=== PATIENT | female | born 1935 | race Hispanic/Latino ===

== ENCOUNTER 2018-01-31 19:54 | Inpatient (IN) | payer OTHER, MEDICARE ==
[~2018-01-31] VITALS: Ht 152.4 cm; Wt 67.6 kg
[2018-01-31] MEDS ORDERED: ONDANSETRON HCL 4 MG/2 ML VIAL ONE (20:34)
[2018-01-31] MEDS ORDERED: SODIUM CHLORIDE 0.9% 1000ML 1,000 ML IV ONE (20:34)
[2018-01-31] MEDS ORDERED: FAMOTIDINE/PF 20 MG/2 ML VIAL IV ONE (20:35)
[2018-01-31 20:59] LABS: BASOPHILS % (AUTO) 0.4 % (0.0-5.0); EOSINOPHILS % (AUTO) 0.3 % (0.0-8.0); HEMATOCRIT 38.6 % (36-48); LYMPHOCYTES % (AUTO) 8.9 % (21.0-51.0); MEAN CORPUSCULAR HEMOGLOBIN 29.4 pg (27.0-33.0); MEAN CORPUSCULAR VOLUME 83.9 fL (79-99); MONOCYTES % (AUTO) 5.6 % (3.0-13.0); NEUTROPHILS % (AUTO) 84.8 % (40.0-77.0); PLATELET COUNT (AUTO) 462 K/uL (130-400); RED CELL DISTRIBUTION WIDTH 13.5 % (11.0-15.5); WHITE BLOOD COUNT (AUTO) 20.1 K/uL (4.8-10.8)
[2018-01-31 21:23] LABS: ALBUMIN 3.5 g/dL (3.5-5.0); BILIRUBIN,TOTAL 0.5 mg/dL (0.2-1.0); CREATINE KINASE MB 1.6 ng/mL (0.5-3.6); THYROID STIMULATING HORMONE 2.01 uIU/mL (0.36-3.74); TOTAL PROTEIN, SERUM 7.5 g/dL (6.0-8.3)
[2018-01-31 21:27] LABS: POTASSIUM 2.8 mmol/L (3.5-5.1)
[2018-01-31 22:04] LABS: ABG OXYGEN SATURATION 78.7 % (95.0-99.0); BASE EXCESS,VENOUS BLOOD GAS 2.3 (-2.0-3.0); HCO3,VENOUS BLOOD GAS 26.9 (21.0-28.0); PCO2,VENOUS BLOOD GAS 42 (32-45); PH,VENOUS BLOOD GAS 7.425 (7.350-7.450)
[2018-01-31] MEDS ORDERED: MAGNESIUM 2GM PREMIX 50ML 50 ML IV ONE (23:15)
[2018-01-31] MEDS ORDERED: POTASSIUM CHLORIDE 20MEQ/100ML 100 ML IV ONE (23:15)
[2018-01-31] MEDS ORDERED: CEFTRIAXONE SODIUM 1 GM ONE (23:15)
[2018-01-31] MEDS ORDERED: NS-20 MEQ KCL 1000ML 1,000 ML IV ONE (23:16)
[2018-01-31 23:58] LABS: APPEARANCE,URINE Cloudy (CLEAR); BILIRUBIN,URINE Negative (NEGATIVE); COLOR,URINE Yellow (YELLOW); GLUCOSE, URINE (UA) Negative (NEGATIVE); KETONES,URINE Negative (NEGATIVE); LEUKOCYTE ESTERASE ,URINE Trace (NEGATIVE); NITRATE,URINE Negative (NEGATIVE); OCCULT BLOOD,URINE Large (NEGATIVE); PROTEIN,URINE Trace (NEGATIVE); UROBILINOGEN,URINE 0.2 mg/dL (0.2-1.0)
[2018-02-01 00:34] LABS: BACTERIA,URINE Rare /HPF (None Seen); WBC,URINE 0-1 /HPF (0-1)
[2018-02-01 01:35] VITALS: BP 149/71
[2018-02-01] MEDS ORDERED: POTASSIUM CHLORIDE 10% ELIXIR 20 MEQ/15 ML UDCUP PO PRN (02:15)
[2018-02-01] MEDS: NS-20 MEQ KCL 1000ML 1,000 ML IV SCH ×2 (02:15→11:40)
[2018-02-01] MEDS ORDERED: MAGNESIUM 2GM PREMIX 50ML 50 ML IV PRN (02:15)
[2018-02-01] MEDS ORDERED: POTASSIUM CHLORIDE 20 MEQ ERTAB PO PRN (02:15)
[2018-02-01 03:27] VITALS: BP 148/71
[2018-02-01] MEDS: LEVOFLOXACIN 500 MG/D5W 100 ML 100 ML IV SCH (04:19)
[2018-02-01 04:33] LABS: BASOPHILS % (AUTO) 0.2 % (0.0-5.0); EOSINOPHILS % (AUTO) 0.3 % (0.0-8.0); HEMATOCRIT 33.1 % (36-48); LYMPHOCYTES % (AUTO) 12.5 % (21.0-51.0); MEAN CORPUSCULAR HGB CONC 34.8 g/dL (32.0-36.0); MEAN CORPUSCULAR VOLUME 83.4 fL (79-99); MONOCYTES % (AUTO) 6.3 % (3.0-13.0); NEUTROPHILS % (AUTO) 80.7 % (40.0-77.0); PLATELET COUNT (AUTO) 328 K/uL (130-400); RED BLOOD CELL COUNT(AUTO) 3.97 MIL/uL (4.00-5.50); RED CELL DISTRIBUTION WIDTH 13.1 % (11.0-15.5); WHITE BLOOD COUNT (AUTO) 15.1 K/uL (4.8-10.8)
[2018-02-01 04:57] LABS: CREATININE 0.7 mg/dL (0.5-1.5); MAGNESIUM 1.7 mg/dL (1.80-2.40)
[2018-02-01 05:00] LABS: HEMOGLOBIN A1C 7.1 % (4.0-6.0)
[2018-02-01 05:06] LABS: POTASSIUM 2.9 mmol/L (3.5-5.1)
[2018-02-01] MEDS: POTASSIUM CHLORIDE 20MEQ/100ML 100 ML IV PRN ×2 (05:40→09:48)
[2018-02-01] MEDS: LIDOCAINE HCL-MPF 1% 2ML VIAL IVP PRN ×2 (05:40→09:48)
[2018-02-01] MEDS: ONDANSETRON HCL 4 MG/2 ML VIAL IV PRN ×3 (06:46→17:26)
[2018-02-01] MEDS: INSULIN HUMULIN R 100 UNIT/ML 3ML SQ SCH ×4 (07:30→21:00)
[2018-02-01 07:45] VITALS: BP 120/57
[2018-02-01] MEDS ORDERED: PRAV10TA39 PO (08:46)
[2018-02-01] MEDS ORDERED: LOSA1TAB54 PO (08:46)
[2018-02-01] MEDS ORDERED: METO-408 PO (08:46)
[2018-02-01] MEDS ORDERED: CYAN250010 PO (08:46)
[2018-02-01] MEDS ORDERED: SITA1TAB2 PO (08:46)
[2018-02-01] MEDS ORDERED: AMLO10TA6 PO (08:46)
[2018-02-01] MEDS ORDERED: PANTOPRAZOLE SODIUM 40 MG TABLET.DR PO SCH (09:00)
[2018-02-01 11:40] VITALS: BP 127/65
[2018-02-01] MEDS: IPRATROPIUM/ALBUTEROL SULFATE 3 ML SOLUTION IH SCH ×2 (14:59→21:21)
[2018-02-01] MEDS: POTASSIUM CHLORIDE 40 MEQ in SODIUM CHLORIDE 0.9% 1000ML 1,000 ML IV SCH (15:18)
[2018-02-01] MEDS: METOCLOPRAMIDE 10 MG/2 ML VIAL IVP SCH ×2 (15:18→21:27)
[2018-02-01] MEDS: FAMOTIDINE/PF 20 MG/2 ML VIAL IV SCH (15:18)
[2018-02-01 16:31] VITALS: BP 135/71
[2018-02-01 17:55] LABS: CREATININE,URINE RANDOM 8 mg/dL (30-135); SODIUM,URINE RANDOM 20 mmol/l (40-220)
[2018-02-01 20:06] VITALS: BP 127/67
[2018-02-02] VITALS (7 sets, daily range): BP systolic 130–155; BP diastolic 57–75
[2018-02-02] MEDS: LEVOFLOXACIN 500 MG/D5W 100 ML 100 ML IV SCH (03:13)
[2018-02-02 03:54] LABS: BASOPHILS % (AUTO) 0.4 % (0.0-5.0); EOSINOPHILS % (AUTO) 0.7 % (0.0-8.0); HEMATOCRIT 31.5 % (36-48); LYMPHOCYTES % (AUTO) 16.1 % (21.0-51.0); MEAN CORPUSCULAR HEMOGLOBIN 29.4 pg (27.0-33.0); MEAN CORPUSCULAR HGB CONC 34.8 g/dL (32.0-36.0); MEAN CORPUSCULAR VOLUME 84.4 fL (79-99); MONOCYTES % (AUTO) 7.3 % (3.0-13.0); NEUTROPHILS % (AUTO) 75.5 % (40.0-77.0); PLATELET COUNT (AUTO) 351 K/uL (130-400); RED BLOOD CELL COUNT(AUTO) 3.73 MIL/uL (4.00-5.50); RED CELL DISTRIBUTION WIDTH 13.4 % (11.0-15.5); WHITE BLOOD COUNT (AUTO) 11.4 K/uL (4.8-10.8)
[2018-02-02 03:56] LABS: CREATININE 0.7 mg/dL (0.5-1.5); MAGNESIUM 2.3 mg/dL (1.80-2.40); POTASSIUM 3.8 mmol/L (3.5-5.1)
[2018-02-02] MEDS: IPRATROPIUM/ALBUTEROL SULFATE 3 ML SOLUTION IH SCH ×3 (06:43→21:21)
[2018-02-02] MEDS: INSULIN HUMULIN R 100 UNIT/ML 3ML SQ SCH ×4 (07:30→22:54)
[2018-02-02] MEDS: FAMOTIDINE/PF 20 MG/2 ML VIAL IV SCH (08:05)
[2018-02-02] MEDS: METOCLOPRAMIDE 10 MG/2 ML VIAL IVP SCH ×4 (08:06→22:53)
[2018-02-02] MEDS: ENOXAPARIN SODIUM 40 MG/0.4 ML SYRINGE SQ SCH (08:06)
[2018-02-02] MEDS: POTASSIUM CHLORIDE 40 MEQ in SODIUM CHLORIDE 0.9% 1000ML 1,000 ML IV SCH (09:56)
[2018-02-03 04:00] VITALS: BP 162/62
[2018-02-03] MEDS: LEVOFLOXACIN 500 MG/D5W 100 ML 100 ML IV SCH (04:07)
[2018-02-03 04:25] LABS: BASOPHILS % (AUTO) 0.6 % (0.0-5.0); EOSINOPHILS % (AUTO) 1.5 % (0.0-8.0); HEMATOCRIT 32.8 % (36-48); MEAN CORPUSCULAR HGB CONC 33.7 g/dL (32.0-36.0); MEAN CORPUSCULAR VOLUME 86.3 fL (79-99); MONOCYTES % (AUTO) 8.1 % (3.0-13.0); NEUTROPHILS % (AUTO) 70.8 % (40.0-77.0); PLATELET COUNT (AUTO) 346 K/uL (130-400); RED CELL DISTRIBUTION WIDTH 13.9 % (11.0-15.5); WHITE BLOOD COUNT (AUTO) 11.3 K/uL (4.8-10.8)
[2018-02-03 04:40] LABS: CREATININE 0.7 mg/dL (0.5-1.5); MAGNESIUM 2.3 mg/dL (1.80-2.40); POTASSIUM 3.9 mmol/L (3.5-5.1)
[2018-02-03] MEDS: INSULIN HUMULIN R 100 UNIT/ML 3ML SQ SCH ×2 (06:00→11:30)
[2018-02-03 07:00] VITALS: BP 131/70
[2018-02-03] MEDS: IPRATROPIUM/ALBUTEROL SULFATE 3 ML SOLUTION IH SCH ×2 (07:12→14:06)
[2018-02-03] MEDS: METOCLOPRAMIDE 10 MG/2 ML VIAL IVP SCH ×2 (07:25→12:10)
[2018-02-03] MEDS: FAMOTIDINE/PF 20 MG/2 ML VIAL IV SCH (10:47)
[2018-02-03] MEDS: ENOXAPARIN SODIUM 40 MG/0.4 ML SYRINGE SQ SCH (10:48)
[2018-02-03 11:00] VITALS: BP 139/73
[2018-02-03] MEDS ORDERED: METO5 PO (12:17)
[2018-02-03] MEDS ORDERED: FAMO-136 PO (12:17)
[2018-02-03] MEDS ORDERED: LEVO750T46 PO (12:17)
== END 2018-02-03 15:15 | disposition home or self-care (01) | DRG 690 ==
LOC: EDH 19:54 → EDHIP 23:10 → 2AH 02-01 01:30
PROVIDERS: ADMIT Internal Medicine; ATTEND Internal Medicine
DX: N39.0 Urinary tract infection, site not specified (principal); E87.1 Hypo-osmolality and hyponatremia; K29.00 Acute gastritis without bleeding; E78.5 Hyperlipidemia, unspecified; E83.42 Hypomagnesemia; E87.6 Hypokalemia; I10 Essential (primary) hypertension; R62.7 Adult failure to thrive; E86.9 Volume depletion, unspecified; F32.9 Major depressive disorder, single episode, unspecified; E11.43 Type 2 diabetes mellitus with diabetic autonomic (poly)neuropathy; K31.84 Gastroparesis; Z79.899 Other long term (current) drug therapy; Z90.49 Acquired absence of other specified parts of digestive tract
CPT/HCPCS: 36415; 36600; 70450; 71045; 80048; 80053; 81001; 82550; 82553; 82570; 82803; 82948; 83036; 83605; 83690; 83735; 83930; 83935; 84300; 84443; 84484; 85025; 87040; 87088; 87186; 93005; 94640; 94664; 97039; 99291; J0696; J1650; J1815; J1956; J2405; J2765; J3475; J3480; J3490; J7030

== ENCOUNTER 2018-10-26 00:58 | Emergency (ER) | payer OTHER, MEDICARE ==
[~2018-10-26 00:58] MED LIST: AMLO10TA7 PO; CYAN250010 PO; FAMO-136 PO; LEVO750T46 PO; LOSA1TAB54 PO; METO-408 PO; METO5 PO; PRAV10TA39 PO; SITA1TAB2 PO
[2018-10-26] MEDS ORDERED: OCTYL 2-CYANOACRYLATE 1 EACH TP ONE (01:10)
== END 2018-10-26 02:18 | disposition home or self-care (01) ==
LOC: EDH 00:58
DX: S01.01XA Laceration without foreign body of scalp, initial encounter (principal); E11.9 Type 2 diabetes mellitus without complications; E78.5 Hyperlipidemia, unspecified; I10 Essential (primary) hypertension; Z90.49 Acquired absence of other specified parts of digestive tract; W22.01XA Walked into wall, initial encounter; Y93.89 Activity, other specified; Y92.098 Other place in other non-institutional residence as the place of occurrence of the external cause; Y99.8 Other external cause status
CPT/HCPCS: 12031; 70450; 72125

== ENCOUNTER 2018-11-04 14:28 | Observation (INO) | payer OTHER, MEDICARE ==
[~2018-11-04] VITALS: Ht 152.4 cm; Wt 68.9 kg
[2018-11-04 15:11] LABS: BASOPHILS % (AUTO) 0.5 % (0.0-5.0); EOSINOPHILS % (AUTO) 1.2 % (0.0-8.0); HEMATOCRIT 37.1 % (36-48); LYMPHOCYTES % (AUTO) 20.8 % (21.0-51.0); MEAN CORPUSCULAR HEMOGLOBIN 29.3 pg (27.0-33.0); MEAN CORPUSCULAR HGB CONC 34.1 g/dL (32.0-36.0); MEAN CORPUSCULAR VOLUME 86.2 fL (79-99); MONOCYTES % (AUTO) 5.9 % (3.0-13.0); NEUTROPHILS % (AUTO) 71.6 % (40.0-77.0); NUCLEATED RED BLOOD CELLS 0.1 % (0.0-0.19); PLATELET COUNT (AUTO) 491 K/uL (130-400); RED BLOOD CELL COUNT(AUTO) 4.31 MIL/uL (4.00-5.50); RED CELL DISTRIBUTION WIDTH 14.3 % (11.0-15.5); WHITE BLOOD COUNT (AUTO) 15.6 K/uL (4.8-10.8)
[2018-11-04 15:17] LABS: POTASSIUM 3.6 mmol/L (3.5-5.1)
[2018-11-04 15:18] LABS: INR 0.93 (0.85-1.15); PARTIAL THROMBOPLASTIN TIME 28.5 SEC (26.3-35.5); PROTHROMBIN TIME 9.8 SEC (9.6-11.6)
[2018-11-04 15:26] LABS: ALBUMIN 3.7 g/dL (3.5-5.0); BILIRUBIN,TOTAL 0.3 mg/dL (0.2-1.0); TOTAL PROTEIN, SERUM 7.4 g/dL (6.0-8.3)
[2018-11-04 21:10] VITALS: BP 154/81
--- NOTE | 2018-11-04 21:10 | NUR ---
ASSESSMENT PATIENT TRANSFERRED FROM [place] [id number]. DX: ACUTE CVA. PATIENT DENIES PAIN AND SHORTNESS OF BREATH. PATIENT DENIES DIZZINESS, NUMBNESS AND DOUBLE VISION. SPEECH CLEAR. HAND REMOTE RUBY ON RAILS DEVELOPER STRONG BILATERALLY. SEE DOCUMENTATION FOR FULL ASSESSMENT. CALL LIGHT WITHIN REACH. INSTRUCTED PATIENT TO CALL IF ASSISTANCE IS NEEDED.
[2018-11-04] MEDS ORDERED: POTASSIUM CHLORIDE 20 MEQ ERTAB PO PRN (21:30)
[2018-11-04] MEDS ORDERED: SODIUM CHLORIDE 0.9% 10 ML VIAL IVP SCH (21:30)
[2018-11-04] MEDS ORDERED: ATORVASTATIN CALCIUM 40 MG TABLET PO SCH (21:30)
[2018-11-04] MEDS ORDERED: GUAIFENESIN-DM 200/20 MG 10 ML PO PRN (21:30)
[2018-11-04] MEDS ORDERED: MAG HYDROX/AL HYDROX/SIMETH ES 30 ML SUSP UDCUP PO PRN (21:30)
[2018-11-04] MEDS ORDERED: DiphenhydrAMINE HCL 50 MG/ML VIAL IVP PRN (21:30)
[2018-11-04] MEDS ORDERED: DIPHENHYDRAMINE HCL 25 MG CAPSULE PO PRN (21:30)
[2018-11-04] MEDS ORDERED: ACETAMINOPHEN 325 MG TAB PO PRN ×2 (21:30)
[2018-11-04] MEDS ORDERED: CLONIDINE HCL 0.1 MG TABLET PO PRN (21:30)
[2018-11-04] MEDS ORDERED: GLUCAGON 1MG KIT 1 MG ML IM PRN (21:30)
[2018-11-04] MEDS ORDERED: POTASSIUM CHLORIDE 10% ELIXIR 20 MEQ/15 ML UDCUP PO PRN (21:30)
[2018-11-04] MEDS ORDERED: DEXTROSE 50%-WATER 50 ML DISP.SYRIN IV PRN (21:30)
[2018-11-04] MEDS ORDERED: LIDOCAINE HCL-MPF 1% 2ML VIAL IJ PRN (21:30)
[2018-11-04] MEDS ORDERED: LACTULOSE 20 GM/30 ML UDCUP PO PRN (21:30)
[2018-11-04] MEDS ORDERED: ZOLPIDEM TARTRATE 5 MG TAB PO PRN (21:30)
[2018-11-04] MEDS ORDERED: NITROGLYCERIN 0.4 MG SL TAB SL PRN (21:30)
[2018-11-04] MEDS ORDERED: ONDANSETRON HCL 4 MG/2 ML VIAL IVP PRN (21:30)
[2018-11-04] MEDS ORDERED: POTASSIUM CHLORIDE 20MEQ/100ML 100 ML IV PRN (21:30)
[2018-11-04] MEDS ORDERED: POTASSIUM CHLORIDE 10 MEQ/TAB.SA PO ONE ×2 (22:35)
[2018-11-04 23:51] VITALS: BP 148/80
[2018-11-05] MEDS ORDERED: POTASSIUM CHLORIDE 10 MEQ/TAB.SA PO ONE ×2 (00:08)
[2018-11-05 03:39] VITALS: BP 149/70
[2018-11-05 03:45] LABS: HEMATOCRIT 34.4 % (36-48); MEAN CORPUSCULAR HEMOGLOBIN 28.7 pg (27.0-33.0); MEAN CORPUSCULAR HGB CONC 33.5 g/dL (32.0-36.0); MEAN CORPUSCULAR VOLUME 85.7 fL (79-99); PLATELET COUNT (AUTO) 497 K/uL (130-400); RED BLOOD CELL COUNT(AUTO) 4.01 MIL/uL (4.00-5.50); WHITE BLOOD COUNT (AUTO) 13.6 K/uL (4.8-10.8)
[2018-11-05 03:54] LABS: BILIRUBIN,TOTAL 0.4 mg/dL (0.2-1.0); CREATININE 0.9 mg/dL (0.5-1.5); POTASSIUM 4.3 mmol/L (3.5-5.1); TOTAL PROTEIN, SERUM 6.2 g/dL (6.0-8.3)
[2018-11-05] MEDS: INSULIN R PO SSI SQ SCH ×3 (06:38→16:30)
[2018-11-05 07:00] VITALS: BP 146/70
--- NOTE | 2018-11-05 07:30 | NUR ---
ASSESSMENT ENCOUNTERED PT A&OX3, CALM COOPERATIVE AND DOES NOT APPEAR TO BE IN ANY DISTRESS NOR ANY NEURO DEFICITS PRESENT. PT IS AMBULATORY WITH WALKER AND ASSIST, GAIT SLOW BUT STEADY, PT IS ABLE TO TOLERATE FOODS AND FLUIDS WITH NO THROAT CLEARING OR COUGH. PT DENIES PAIN, SOB, DIZZINESS OR LIGHTHEADEDNESS. CALL LIGHT WITHIN REACH, FAMILY AT BEDSIDE.
[2018-11-05] MEDS ORDERED: ASPIRIN 325 MG TABLET PO SCH (09:00)
[2018-11-05] MEDS ORDERED: AMLODIPINE BESYLATE 5 MG TAB PO SCH (10:15)
[2018-11-05] MEDS ORDERED: LOSARTAN/HYDROCHLOROTHIAZIDE 50-12.5MG TABLET PO SCH (10:45)
[2018-11-05] MEDS ORDERED: METOPROLOL TARTRATE 25 MG TAB PO SCH (10:45)
[2018-11-05 11:30] VITALS: BP 150/60
--- NOTE | 2018-11-05 11:43 | NUR ---
NUTRITION INTERVENTION: NUTRITION CONSULT TRIGGER. Pt ADMITTED WITH DX OF ACUTE CVA. HEART HEALTHY DIET EDUCATION GIVEN PER PROTOCOL. Pt REPORTS 0% INTAKE D/T DISLIKE TO HOSPITAL FOOD. Pt ENCOURAGED TO EAT MEALS. NUTRITION SUPPLEMENT TO BE PROVIDED. PLEASE CONSULT RD NUTRITION CONCERNS ARISE. Addendum: 11/05/18 at [address] Amended: Links added.
--- NOTE | 2018-11-05 13:00 | NUR ---
DR COHN AT BEDSIDE UPDATE GIVEN, NO ORDERS RECEIVED
[2018-11-05 15:20] VITALS: BP 123/60
--- NOTE | 2018-11-05 16:08 | NUR ---
cm note met with patient and resides athome alone. ambulates per self, but does have a walker for assist, goes to Adult daycare wed-wednesday. 745a-1pm. and is pending to have PT start to see her at home as per her orders from PCP. [facility] plan is back to home. does have someone who can stay with her as needed at home. feels safe to return back to same setting at [place]. Addendum: 11/05/18 at 1611 by SANDRA AMAYA CM Amended: Links added.
--- NOTE | 2018-11-05 17:00 | NUR ---
ECHO PENDING DR COHN UPDATED, ORDERS RECEIVED, PT AND FAMILY STATE THAT SHE WOULD LIKE TO HAVE ECHO DONE OUTPATIENT AND WOULD LIKE TO FOLLOW UP WITH DR MARSHALL ON WEDNESDAY. PT IS A&OX3, CALM COOPERATIVE AND DOES NOT APPEAR TO BE IN ANY DISTRESS NOR ANY NEURO DEFICITS PRESENT. PT HAS BEEN AMBULATING, GAIT SLOW BUT STEADY WITH WALKER AND STAND BY ASSIST. PT HAS ALSO BEEN TOLERATING MEDICATIONS, FOODS AND FLUIDS WITH NO THROAT CLEARING OR COUGH. CALL LIGHT WITHIN REACH.
--- NOTE | 2018-11-05 18:42 | NUR ---
DISCHARGE INSTRUCTIONS GIVEN, PIV REMOVED AND INTACT, DISCHARGED HOME TO FAMILY VEHICLE VIA WHEELCHAIR.
[2018-11-05] MEDS ORDERED: ATORVASTATIN CALCIUM 10 MG TABLET PO SCH (21:00)
[2018-11-05] MEDS ORDERED: JANUMET PO SCH (21:00)
== END 2018-11-05 18:37 | disposition home or self-care (01) ==
LOC: EDH 14:28 → INTOOBSV 16:00 → EDHIP 16:00 → 2AH 20:52
PROVIDERS: ADMIT Family Medicine; ATTEND Family Medicine
DX: I61.9 Nontraumatic intracerebral hemorrhage, unspecified (principal); R47.81 Slurred speech; E11.9 Type 2 diabetes mellitus without complications; R93.0 Abnormal findings on diagnostic imaging of skull and head, not elsewhere classified; I10 Essential (primary) hypertension; E78.5 Hyperlipidemia, unspecified; Z79.899 Other long term (current) drug therapy
CPT/HCPCS: 36415 ×2; 70450; 70544; 70547; 70551; 71045; 80053 ×2; 80061; 82550; 82948 ×4; 83874; 84484; 85025; 85027; 85610; 85730; 93005; 93880; 97161; 99291; G0378 ×27; G8978; G8979; G8980; G8981; G8982; G8983

== ENCOUNTER → 2022-10-14 | Outpatient (CLI) | payer OTHER, MEDICARE ==
[~2022-10-14] MED LIST changes: +AMLO-258 PO; -AMLO10TA7 PO; -CYAN250010 PO; -FAMO-136 PO; -LEVO750T46 PO; -METO5 PO
[2022-10-14 16:47] LABS: CREATININE 0.8 mg/dL (0.5-1.5); POTASSIUM 4.3 mmol/L (3.5-5.1)
== END | disposition home or self-care (01) ==
LOC: LAB 14:01
PROVIDERS: ATTEND Student in an Organized Health Care Education/Training Program
DX: Z01.810 Encounter for preprocedural cardiovascular examination (principal)
CPT/HCPCS: 36415; 80048